=== PATIENT | male | born 1995 | race African-American/Black ===

== ENCOUNTER 2019-11-02 15:55 | Emergency (ER) | payer MEDICAID ==
[~2019-11-02] VITALS: Ht 177.8 cm; Wt 95.3 kg
[2019-11-02 16:11] VITALS: BP 136/91
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
[2019-11-02] MEDS ORDERED: Ketorolac 30mg Inj IM ONE (16:30)
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
[2019-11-02] MEDS ORDERED: ACETAMINOPHEN-1 EAC1 ORAL (16:44)
[2019-11-02] MEDS ORDERED: IBU800 MG PO (16:44)
[2019-11-02] MEDS ORDERED: MUPIROCIN22 GM TOPIC (16:44)
--- NOTE | 2019-11-02 16:54 | NUR ---
ER DISCHARGE NOTE: Patient is cleared to be discharged per ERMD. D/C instruction and prescriptions given to patient. Patient was able to verbalize understanding of it. ID band removed. Patient awaiting for x-ray CD.
[2019-11-02] MEDS ORDERED: Bacitracin Oint UD TOPIC ONE (17:00)
== END 2019-11-02 16:54 | disposition home or self-care (01) ==
LOC: EMR 16:31
DX: S62.614A Displaced fracture of proximal phalanx of right ring finger, initial encounter for closed fracture (principal); Y04.8XXA Assault by other bodily force, initial encounter; Y92.9 Unspecified place or not applicable; S00.212A Abrasion of left eyelid and periocular area, initial encounter; M20.011 Mallet finger of right finger(s)
CPT/HCPCS: 29130; 73130; 96372; J1885; Z7502; 99283